=== PATIENT | female | born 1990 | race Two or more races ===

== ENCOUNTER 2024-02-05 12:53 | Emergency (ER) | payer OTHER ==
[2024-02-05 13:08] VITALS: BP 134/87; PULSE 88; RESP 18; TEMP 98.1; BMI 23.3
[2024-02-05] MEDS ORDERED: KETOROLAC TROMETHAMINE 30 MG/1 ML VIAL ONE (14:06)
[2024-02-05] MEDS ORDERED: ACETAMINOPHEN 325 MG TABLET (FP) ONE (14:06)
[2024-02-05] MEDS ORDERED: LIDOCAINE 4% PATCH TP ONE (14:06)
[2024-02-05] MEDS: KETOROLAC TROMETHAMINE 30 MG/1 ML VIAL IM ONE (14:09)
[2024-02-05] MEDS: LIDOCAINE 5% TOPICAL PATCH TP ONE (14:09)
[2024-02-05] MEDS: ACETAMINOPHEN 325 MG TABLET (FP) PO ONE (14:09)
[2024-02-05 14:30] LABS: URINE APPEARANCE CLEAR; URINE BILIRUBIN NEGATIVE (NEGATIVE); URINE COLOR YELLOW; URINE GLUCOSE (UA) NEGATIVE (NEGATIVE); URINE KETONE NEGATIVE (NEGATIVE); URINE LEUK ESTERASE NEGATIVE (NEGATIVE); URINE NITRITE NEGATIVE (NEGATIVE); URINE PROTEIN NEGATIVE (NEGATIVE); URINE UROBILINOGEN 0.2 mg/dL (0.2-1.0)
[2024-02-05 14:42] LABS: HCG,QUALITATIVE URINE Negative
[2024-02-05] MEDS ORDERED: METHOCARBAMOL 500 MG TABLET ONE (15:04)
[2024-02-05] MEDS: METHOCARBAMOL 500 MG TABLET PO ONE (15:04)
[2024-02-05] MEDS ORDERED: LIDOCAINE PATCH REMOVAL MC ONE (22:00)
== END 2024-02-05 15:32 | disposition home or self-care (01) ==
LOC: JERFT 12:53
PROC: 3E0233Z Introduction of Anti-inflammatory into Muscle, Percutaneous Approach (ICD-10-PCS; principal; 2024-02-05)
DX: M54.50 Low back pain, unspecified (principal)
CPT/HCPCS: 81003; 84703; 87086; 99284-25